=== PATIENT | female | born 1960 | race Caucasian/White ===

== ENCOUNTER 2016-06-30 13:14 | Emergency (ER) | payer MEDICARE ==
[2016-06-30] MEDS ORDERED: DUONEB INH ONE ×2 (17:46)
[2016-06-30] MEDS ORDERED: DEXAMETHASONE 4 MG/ML VIAL ONE (17:47)
[2016-06-30] MEDS ORDERED: Meclizine HCl 25 MG TAB ONE (17:51)
== END 2016-06-30 17:19 | disposition left against medical advice (07) ==
LOC: ER 13:14
DX: J44.0 Chronic obstructive pulmonary disease with (acute) lower respiratory infection (principal); J20.9 Acute bronchitis, unspecified; F17.210 Nicotine dependence, cigarettes, uncomplicated
CPT/HCPCS: 71020; 87804; 94640; 96372